=== PATIENT | male | born 1950 | race Caucasian/White ===

== ENCOUNTER 2017-01-05 17:15 | Observation (INO) | payer BC ==
[~2017-01-05] VITALS: Ht 198.1 cm; Wt 122.3 kg
--- NOTE | 2017-01-05 17:39 | DIAGNOSTIC IMAGING REPORT ---
PROCEDURE: XR CHEST 1 VIEW INDICATION: STROKE SYMPTOMS TECHNIQUE: Portable AP view 05:32 p.m. COMPARISON: None. FINDINGS: Lungs are clear. Heart and mediastinum are normal. Thorax is normal. IMPRESSION: 1. Negative chest.
--- NOTE | 2017-01-05 18:21 | DIAGNOSTIC IMAGING REPORT ---
PROCEDURE: CT HEAD WITHOUT CONTRAST INDICATION: STROKE TECHNIQUE: Axial CT images were acquired through the head. Coronal and sagittal reformations were created. COMPARISON: Brain MRI dated 01/01/2016 FINDINGS: Mild cortical atrophy and normal ventricular system Mild white matter chronic ischemic changes. Dolichoectasia of the basilar artery (diameter 1.5 cm, length 3 cm) with questionable thrombus formation and prominent indentation of the right side of the negro. There is no acute CVA, acute hemorrhage or mass. Normal orbits. The mastoids and sinuses are clear. . IMPRESSION: 1. Basilar dolichoectasia with marked indentation of the right side of the negro and questionable thrombus formation. 2. Mild atrophy and white matter chronic ischemic changes. 3. Findings discussed with Dr. Spencer at 06:[address] scans at this facility use dose modulation, iterative reconstruction, and/or weight-based dosing when appropriate to reduce radiation dose to as low as reasonably achievable.
--- NOTE | 2017-01-05 18:40 | DIAGNOSTIC IMAGING REPORT ---
PROCEDURE: CTA HEAD AND NECK INDICATION: STROKE SYMPTOMS TECHNIQUE: CT angiogram of the brain 23-second delay following 122 ml of Isovue 370 COMPARISON: Brain MRI dated 01/01/2016 FINDINGS: There is a dolichoectatic basilar artery with aneurysmal dilatation in the midportion. In the AP dimension the aneurysm now measures 3 cm. The aneurysm is now indenting and compressing the brainstem. There is also dolichoectasia of the carotid and middle cerebral arteries. Since the previous study the aneurysm appears to have increased in diameter by 2-3 mm. There is no acute CVA or acute hemorrhage IMPRESSION: 1. Dolichoectatic basilar artery fusiform aneurysm with 2-3 mm of enlargement in diameter over the past year. 2. No acute hemorrhage or infarct. 3. Results were called to Dr. Spencer at 06:30 p.m.
--- NOTE | 2017-01-05 19:47 | ED NURSING NOTES ---
Clinical Report - Nurses [place] [place] [address] [place] [address] 01/05/2017 17:16 Patient: CIRILO HOPE TRIAGE Acuity: LEVEL 2. Chief Complaint: IMPAIRED SPEECH and DIFFICULTY WALKING. Alert. No acute distress. SEPSIS SCREEN: Sepsis Screen. Negative (no infection suspected/documented). SALLIE COMA SCORE: Donahue Coma Scale: 15- eyes open spontaneously (4); best verbal response- oriented x 4 (5); best motor response- obeys commands (6). --17:25 Magdalena Bauer R.N. 17:18 01/05/17. BP: 153/96. HR: 68. RR: 18. O2 saturation: 95% on room air. Temp: 98.4 F (oral). Pain level now: 0/10. --17:25 Magdalena Bauer R.N. Weight: 113.3 kg stated. Height/Length: 79 inches Per Patient. BMI: 28.2. --17:22 Magdalena Bauer R.N. Medications AmLODIPine Besylate Oral (Tablet 10 mg) 1 tablet, at bedtime. --18:05 Joao Noriega R.N. AndroGel Pump Transdermal (Gel 20.25 MG/ACT (1.62%)) (apply one punctate shoulder daily in the morning). --18:06 Joao Noriega R.N. Cialis Oral (Tablet 5 mg) 1 tablet, daily (take one tablet by mouth once daily to help with urine flow and help with sexual function ). --18:09 Joao Noriega R.N. ClonazePAM Oral (Tablet 1 mg) 1-1/2 tablets, at bedtime (for sleep and muscle spasm). --18:10 Joao Noriega R.N. Losartan Potassium Oral (Tablet 100 mg) 1 tablet, daily (take one tablet every morning to control blood pressure). --18:10 Joao Noriega R.N. Metoprolol Tartrate Oral (Tablet 100 mg) 1 tablet, every 12 hours (one tablet by mouth every 12 hours for blood pressure control). --18:12 Joao Noriega R.N. Spironolactone Oral (Tablet 25 mg) 1 tablet, daily (one tablet by mouth every morning to control blood pressure and fluid retention). --18:13 Joao Noriega R.N. Aspirin Oral (Tablet 325 mg). --20:34 Praveen Spencer DO. Medication/allergy information source: the patient's primary care provider and imported external medical record (faxed from Dr Corley office by Brisa Emmanuel). --18:24 Joao Noriega R.N. Allergies No Known Drug Allergy. --17:27 Magdalena Bauer R.N. History Arrived by private vehicle. Historian: patient. Unaccompanied. This started 1 weeks ago. Onset. (1 weeks ago). ( Pt reports slurred speech and difficulty walking "on and off for a week." He reports he called [facility] and they instructed them to come into the ED.). NUTRITIONAL RISK ASSESSMENT: The nutritional risk assessment revealed no deficiencies. FUNCTIONAL ASSESSMENT: Functional assessment: no impairments noted. LEARNING NEEDS ASSESSMENT: The learning needs assessment revealed no barriers. FALL RISK ASSESSMENT: Fall risk assessment completed. Risk factors identified include patient impairment of mobility. SKIN INTEGRITY ASSESSMENT: Skin integrity risk assessment completed. No skin integrity risk identified. --17:25 Magdalena Bauer R.N. PROBLEMS: Hypoxia. Urinary tract obstruction. Multiple nodules of lung. Transient cerebral ischemia. Bifascicular block on echo. Benign essential hypertension. Testicular hypofunction. Benign Prostatic Hypertrophy. Peripheral Vascular Disease. Pulmonary Embolism. Obstructive Sleep Apnea. Anxiety Reaction. Hyperlipidemia. Hypertension. Aneurysm, Cerebral. Aortic Aneurysm. CVA - Cerebrovascular Accident. --18:23 Joao Noriega R.N. ADDITIONAL SURGERIES: Colonoscopy. Fracture Repair. Tonsillectomy. --18:23 Joao Noriega R.N. Assessment GENERAL / NEURO / PSYCH: Alert. Oriented X 4. Appears in no acute distress. Patient appears calm and cooperative. RESPIRATORY: Respirations not labored. CVS: Capillary refill less than 2 seconds. GI / : Abdomen soft and nontender. SKIN: Mucous membranes are pink. Skin is warm and dry. --17: Magdalena Bauer R.N. Interventions ID band on patient. To treatment room. --17: Magdalena Bauer R.N. PHYSICAL ASSESSMENT 17:24 01/05/17. Ambulatory to room. Baseline functional status: usually alert and oriented x4. Verbal response: usually clear and appropriate. Motor response: usually steady gait and moves all extremities equally GENERAL / NEURO / PSYCH: Awake. Oriented X 4. Alert. Appears in no acute distress. Speech normal. Mood/affect normal. Moves all extremities. HEENT: No facial asymmetry noted. No signs of head trauma. CVS: Capillary refill less than 2 seconds. SKIN: Skin is intact, warm and dry. --17:24 Magdalena Bauer R.N. NURSING PROGRESS NOTES 17:01/05/2017 Site #1 started via IV in the right antecubital space with an 20g angiocath, with aseptic technique and good blood return; one attempt. Blood drawn: rainbow set. Labeled in the presence of the patient and sent to the lab. Saline lock flushed with 10 mL saline. --: Magdalena Bauer R.N. 17:01/05/17. Finger stick glucose: 67 mg/dL; performed by [employer]; result shown to the ED physician. Patient gowned. Head of bed elevated. Two patient identifiers checked. Call light placed in reach. Side rails up x 2. Bed placed in lowest position. Brakes of bed on. Patient ready for evaluation- ED physician notified. ED physician at the patient's bedside. --17: Magdalena Bauer R.N. 17:33 01/05/17. ( chest X-ray performed in room..). --: Magdalena Bauer R.N. 17:58 01/05/2017 Started bag #1 1000 mL IV Fluids IV NS (Saline); at 999 mL/hr over 15 minute(s) via site #1 via IV pump. Allergies verified and confirmed 5 rights. IV patency established. IV site checked: no pain, redness, or swelling. IV flushed thoroughly pre- and post-medication administration. --17:58 Magdalena Bauer R.N. 17:58 01/05/17. Patient returned from CT by stretcher with nurse and tech. --17:58 Magdalena Bauer R.N. 17:59 01/05/17. BP: 134/100. HR: 62. RR: 11. O2 saturation: 96% on room air. --18:01 Magdalena Bauer R.N. late entry - 18:10. --18:26 Magdalena Bauer R.N. 18:26 01/05/17. BP: 128/86. HR: 60. RR: 12. O2 saturation: 96%. --18:26 Magdalena Bauer R.N. 18:40 01/05/17. BP: 125/83. HR: 58. RR: 20. O2 saturation: 94%. --18:40 Magdalena Bauer R.N. 19:09 01/05/17. Care transferred and report received (from Magdalena, RN). --19:09 Lorenza Valverde R.N. EKG time: (17:28). EKG was performed by a tech and shown to the ED physician. Glucose: 67. --19:13 Abby Pandey 19:42 Telemetry strip posted to chart. --19:42 Yariel, Oarlia, ER Tech1 Cardiac rhythm: sinus bradycardia. --19:56 Lorenza Valverde R.N. 19:55 01/05/17. BP: 131/87. HR: 57. RR: 18. O2 saturation: 98%. Pain level now 0/10. --19:56 Lroenza Valverde R.N. NIH STROKE SCALE: 19:54 01/05/17. 19:55 01/05/17. Score 0. Level of Consciousness: alert (0). LOC Questions: both (0). LOC Commands: both (0). Best gaze: normal (0). Visual field loss: none (0). Facial palsy: normal (0). Motor arm: no drift right arm (0) and no drift left arm (0). Motor leg: no drift right leg (0) and no drift left leg (0). Limb ataxia: none (0). Sensory loss: none (0). Aphasia: none (0). Dysarthria: normal (0). Extinction and inattention: none (0). --19:55 Lorenza Valverde R.N. DISPOSITION / DISCHARGE 20:47 01/05/2017 Site #[address] upon admission; patent. Good blood return present; flushes easily. --20:47 Lorenza Valverde R.N. 20:47 01/05/2017 IV Fluids IV NS Discontinued: discontinued. Total amount infused: 750 mL. IV patency established. IV site checked: no pain, redness, or swelling. IV flushed thoroughly. --20:47 Lorenza Valverde R.N. Condition at departure: improved and stable. The goals identified in the patient's plan of care were met. Disposition: observation in Acute Care. Report was given. (to Kristie, RN). Bed requested (210 B). FALL RISK ASSESSMENT: Fall risk assessment completed. No fall risk identified. --20:48 Lorenza Valverde R.N. 19:55 01/05/17. BP: 131/87. HR: 57. RR: 18. O2 saturation: 98%. Pain level now 0/10. 18:40 01/05/17. BP: 125/83. HR: 58. RR: 20. O2 saturation: 94%. 18:26 01/05/17. BP: 128/86. HR: 60. RR: 12. O2 saturation: 96%. 17:59 01/05/17. BP: 134/100. HR: 62. RR: 11. O2 saturation: 96% on room air. 17:18 01/05/17. BP: 153/96. HR: 68. RR: 18. O2 saturation: 95% on room air. Temp: 98.4 F (oral). Pain level now: 0/10. --20:48 Lorenza Valverde R.N. Locked/Released at 01/05/2017 20:48 by Lorenza Valverde R.N.
--- NOTE | 2017-01-05 19:47 | ED CLINICAL REPORT ---
Clinical Report - Physicians/Mid Levels [facility] [address] [place] [address] 01/05/2017 17:16 Patient: CIRILO HOPE Time Seen: 17:17. Arrived- By private vehicle. Historian- patient. HISTORY OF PRESENT ILLNESS Chief Complaint: DIFFICULTY WALKING and IMPAIRED SPEECH. This started about 1 week ago - continuous for past 2 days and is still present. It was abrupt in onset and has been waxing/waning. The patient has had difficulty with speech. He has had moderate difficulty walking. The patient has also had coordination problems. At its maximum deficit described as moderate. When seen in the E.D.,deficit described as moderate. No dizziness, altered mental status or seizure. Usually is alert and oriented X3 and has normal mobility. Similar symptoms previously: Recent medical care: Not recently seen/assessed. REVIEW OF SYSTEMS No fever, chest pain, difficulty breathing, cough or sputum production. No sore throat, abdominal pain, nausea, diarrhea or black stools. No difficulty with urination, skin rash, vomiting, bloody stools or back pain. The patient has had a mild headache. The headache has been similar to previous ones and joint pain. All systems otherwise negative, except as recorded above. PAST HISTORY See nurses notes. Hypertension. Stroke. ( PCP: Dr Emmanuel Neurologist: Dr Mills). Aortic aneurysm. Peripheral vascular disease. Obstructive sleep apnea. Pulmonary embolism. Hyperlipidemia. Cerebral aneurysm (right basilar artery aneurysm causing episodic TIA-type symptoms.). Poliomyelitis (as small child). Benign prostatic hypertrophy. Anxiety with panic attacks. (Testicular hypofunction). Surgeries: Colonoscopy. Left lower extremity fracture repair (foot - reconstruction after polio). Tonsillectomy. Medications: Aspirin Oral (Tablet 325 mg). Spironolactone Oral (Tablet 25 mg) 1 tablet, daily (one tablet by mouth every morning to control blood pressure and fluid retention). Metoprolol Tartrate Oral (Tablet 100 mg) 1 tablet, every 12 hours (one tablet by mouth every 12 hours for blood pressure control). Losartan Potassium Oral (Tablet 100 mg) 1 tablet, daily (take one tablet every morning to control blood pressure). ClonazePAM Oral (Tablet 1 mg) 1-1/2 tablets, at bedtime (for sleep and muscle spasm). Cialis Oral (Tablet 5 mg) 1 tablet, daily (take one tablet by mouth once daily to help with urine flow and help with sexual function ). AndroGel Pump Transdermal (Gel 20.25 MG/ACT (1.62%)) (apply one punctate shoulder daily in the morning). AmLODIPine Besylate Oral (Tablet 10 mg) 1 tablet, at bedtime. Allergies: No Known Drug Allergy. SOCIAL HISTORY Former smoker. Occasional alcohol use. No drug use. Residence: - 09/02/2016 Is a local resident. FAMILY HISTORY Heart disease in first-degree relative (father); cancer in first-degree relative (mother). Father age 66y/o from heart disease Mother age 64 y/o from lung / brain cancer. ADDITIONAL NOTES The nursing notes have been reviewed. PHYSICAL EXAM Vital Signs: 01/05/2017 17:18 BP: 153/96. HR: 68. RR: 18. O2 saturation: 95%. Temp: 98.4 F. Pain level now: 0/10. Appearance: Alert. Odor of alcohol is not present. Head: Head atraumatic. Eyes: Pupils equal, round and reactive to light and light. ENT: Normal ENT inspection. Airway intact. Pharynx normal. Neck: Normal inspection. Neck supple. No meningeal signs or carotid bruit. CVS: Normal heart rate and rhythm. Heart sounds normal. Pulses normal. Respiratory: No respiratory distress. Breath sounds normal. Abdomen: Soft and nontender. Back: Normal inspection. Skin: No cyanosis. Skin warm and dry. Normal skin color. Normal skin turgor. Extremities: No calf tenderness. No lower extremity edema. (left foot deformity - nontender). Neuro: Pattie Coma Scale: 15- eyes open spontaneously (4); best verbal response- oriented x 3 (5); best motor response- obeys commands (6). Awake. Alert. Alert. Oriented X 3 and 3. Alertness is not decreased. No aphasia. Mood/affect normal and normal. Speech normal and normal. No dysphasia or dysarthria. Cranial nerves normal (as tested) and tested). Abnormal gait due to mild ataxia. No motor deficit and deficit. No weakness. No sensory deficit and deficit. No sensory deficit. Reflexes normal and normal. NIH Stroke Scale: score 1. Level of Consciousness: drowsy (1). LOC Questions: both (0). Best gaze: normal (0). Visual field loss: none (0). Facial palsy: normal (0). Motor arm: no drift right arm (0) and no drift left arm (0). Motor leg: no drift right leg (0) and no drift left leg (0). Limb ataxia: none (0). Sensory loss: none (0). Aphasia: none (0). Dysarthria: normal (0). Extinction and inattention: none (0). No pronator drift. LABS, X-RAYS, AND EKG EKG: EKG time: (17:28). Normal sinus rhythm. Rate: 65. Normal P waves. Normal JORGE. RBBB. Left axis deviation. Non-specific ST segment / T wave abnormalities. Non-specific T wave flattening in lead III. Non-specific T wave inversion in lead V1 and V2. EKG unchanged when compared with prior EKG. (from 12/05/2014). The study has been interpreted contemporaneously by me. The EKG appears to be a good tracing. Rhythm Strip #1: Normal sinus rhythm. Regular rhythm. Narrow QRS complexes. No ectopy. Chest X-ray: No acute disease. Normal heart size. Mediastinum normal. Views: AP (portable). Technique: good. The X-rays were interpreted contemporaneously by me. The X-rays were discussed with the radiologist (via PACS note). CT Head: No hemorrhage. (IMPRESSION: 1. Basilar dolichoectasia with marked indentation of the right side of the negro and questionable thrombus formation. 2. Mild atrophy and white matter chronic ischemic changes.). Head CT performed without contrast. The study was independently viewed by me, interpreted by the radiologist and discussed with the radiologist. Laboratory Tests: ESR: (MARLEN: 01/05/2017 17:25) ( MsgRcvd 01/05/2017 17:57) Final results Test Result Flag Units (Reference) SED RATE WESTERGREN 11 mm/hr (0-20) CBC w Diff: (MARLEN: 01/05/2017 17:25) ( MsgRcvd 01/05/2017 17:34) Final results Test Result Flag Units (Reference) WHITE BLOOD COUNT 12.7 H K/uL (4.5-11.5) RED BLOOD COUNT 4.73 M/uL (4.50-5.90) HEMOGLOBIN 13.1 L gm/dL (13.5-17.5) HEMATOCRIT 39.1 L % (41.0-53.0) MEAN CELL VOLUME 83 fL (80-100) MEAN CORPUSCULAR HGB 28 pg (26-34) MEAN CORPUSCULAR HGB CONC 33 g/dL (31-37) RED CELL DISTRIBUTION WIDTH 13.7 % (11.6-14.8) PLATELET COUNT 230 K/uL (150-400) LYMPH % 34.5 % (25-40) MONO % 3.1 % (3-14) GRANULOCYTE % 62.4 PT with INR: (MARLEN: 01/05/2017 17:25) ( MsgRcvd 01/05/2017 17:57) Final results Test Result Flag Units (Reference) INR 1.0 (0.8-1.2) Low Intensity Therapy: INR 1.5-2.0 PT range 18.5-23.1Mod.Intensity Therapy: INR 2.0-3.0 PT range 23.1-31.5High Intensity Therapy: INR 2.5-3.5 PT range 27.4-35.5High Intensity Therapy 2: INR 3.0-4.0 PT range 31.5-39.3 D-DIMER QUANTITATIVE 1.35 H ug/mLFEU (0.27-0.52) The primary value of this quantitative assay relates toits negative predictive value (i.e. exclusion) of pulmonaryembolism/deep vein thrombosis/DIC.Elevated levels of d-dimer may also occur with:, age, cancer, inflammation, liver disease,post-op, infection, hematoma, coronary disease, peripheralarteriopathy, bleeding disorders and thrombolytic treatment.Results should be correlated with other clinical andradiological data.Testing Methodology: Latex Immunoassay BNP: (MARLEN: 01/05/2017 17:25) ( [facility] 01/05/2017 18:06) Final results Test Result Flag Units (Reference) B-TYPE NATRIURETIC PEPTIDE 19.4 pg/ml (5-100) Amylase: (MARLEN: 01/05/2017 17:25) ( SdgRcvd 01/05/2017 18:02) Final results Test Result Flag Units (Reference) AMYLASE 38 U/L (25-115) THYROID STIMULATING HORMONE 3.894 H uIU/mL (0.30-3.74) CHEM 13 PANEL: (MARLEN: 01/05/2017 17:25) ( [facility] 01/05/2017 18:02) Final results Test Result Flag Units (Reference) GLUCOSE 89 mg/dL (70-110) BUN 22 H mg/dL (7-18) CREATININE 1.0 mg/dL (0.6-1.3) Estimated GFR >60 mL/min Estimated GFR- >60 mL/min Note: Persistent reduction over 3 months in eGFR<60 mL/min/1.73 m2 defines CKD. Patients with eGFR values>=60 mL/min/1.73 m2 may also have CKD if evidence ofpersistent proteinuria. Additional information may be foundat www.kidney.org. SODIUM 140 mmol/L (136-145) POTASSIUM 4.2 mmol/L (3.5-5.1) CHLORIDE 103 mmol/L (98-107) CARBON DIOXIDE 26 mmol/L (21-32) CALCIUM 8.9 mg/dL (8.5-10.1) TOTAL PROTEIN 7.6 g/dL (6.4-8.2) ALBUMIN 4.0 g/dL (3.3-5.0) BILIRUBIN, TOTAL 0.3 mg/dL (0.0-1.0) ALKALINE PHOSPHATASE 71 U/L (46-116) AST (SGOT) 20 U/L (15-37) ALT (SGPT) 24 U/L (12-78) CPK 353 H U/L (24-260) MAGNESIUM 2.0 mg/dL (1.8-2.4) CK-MB 1.2 ng/mL (0.5-3.2) %CKMB 0.3 % (0.0-4.0) TROPONIN I <0.05 L ng/mL (0.00-1.5) TROPONIN REFERENCE RANGE:<0.1 NEGATIVE0.1-1.5 INDETERMINANT>1.5 POSITIVE . Pulse Oximetry: 01/05/2017 17:18 O2 saturation: 95%. (FIO2 - room air). Interpretation: normal. Note - Tests: (DATE OF EXAM(S): 01/01/16 PROCEDURE: MR BRAIN WITHOUT CONTRAST INDICATION: Slurred speech, loss of balance, initial encounter IMPRESSION: 1. Basilar dolichoectasia with marked indentation of the right side of the negro and questionable thrombus formation. Recommend brain MRA. 2. Mild atrophy and white matter chronic ischemic changes. 3. Results discussed with Dr. Emmanuel DATE OF EXAM(S): 12/29/2014 PROCEDURE: CTA THORAX IMPRESSION: 1. No pulmonary embolus. 2. Moderate diffuse cardiomegaly and interstitial prominence raising possibility of mild CHF, chronicity uncertain. 3. Multiple bilateral pulmonary nodules as well as pleural plaquing suggestive of asbestosis. Follow-up chest CT in 3-6 months to begin documenting stability is recommended. 4. Discussed with Dr. Emmanuel. EXAM(S): NM CARDIAC STRESS TEST DATE OF EXAM(S): 12/13/2014 CONSULTING DIESEL ENGINE II PIPE FITTER: Alli Moreno MD PROCEDURE PERFORMED: Two-day sestamibi CLINICAL INDICATIONS: Failed treadmill. Fatigue. Risk factors. IMPRESSION: 1. No evidence for fixed or ischemic defects. 2. Left ventricular enlargement. 3. Left ventricular ejection fraction 48%, mildly diffusely decreased.). PROGRESS AND PROCEDURES Course of Care: Pt took ASA 325 mg prior to arrival today 01/05/2017 18:26 BP: 128/86. HR: 60. RR: 12. O2 saturation: 96%. 01/05/2017 17:18 BP: 153/96. HR: 68. RR: 18. O2 saturation: 95%. Temp: 98.4 F. Pain level now: 0/10. TCD's in the past at [facility] did not reveal emboli 18:56 01/05/17. Feels that pt should have MRI within 24 hours - recommends obs admission for monitoring and MRI in am. Discussed case with on-call health care provider, (Lew Cool - stroke fellow - call placed 18:20 call returned 18:31; Spoke with Dr Pelletier and returned at 18:53). Reviewed test results. Agreed upon decision. Discussed case with hospitalist, (Toma call placed 18:57). Refers case to other health care provider. Call placed to health care provider [place]. Patient/family counseled. Old clinic and office records reviewed. Disposition: Observation in Acute Care. Condition: stable and improved. CLINICAL IMPRESSION Multiple acute transient ischemic attacks consistent with the vertebro-basilar artery syndrome. Essential hypertension. Basilar artery aneurysm with thrombus. INSTRUCTIONS Follow-up: Screening today revealed the patient's blood pressure to be in the hypertensive range. The patient should follow up with a primary care provider for blood pressure management. The patient was admitted and blood pressure will be managed during the admission. (Electronically signed by Praveen Spencer DO 01/05/2017 23:15)
--- NOTE | 2017-01-05 19:47 | ED ORDER SUMMARY ---
..... Patient: CIRILO HOPE OrderSheet [facility] VisitID: [id number] [place] [address] 66y, M Registration Date/Time: 01/05/2017 ORDER SHEET Weight: 113.3 kg (stated) Allergies: No Known Drug Allergy GENERAL ORDERS: Chest 1V Urgent (17:17 01/05/2017 PHutchinson DO) (Ack 17:21 KHoerner) (18:03 MWinterer R.N.) Estate [employer] Tax Principal (Continuous) (17:17 01/05/2017 PHutchinson DO) (Ack 17:21 KHoerner) (17:25 MWinterer R.N.) CT Head wo Cont Urgent (17:18 01/05/2017 PHutchinson DO) (Ack 17:21 KHoerner) (18:03 MWinterer R.N.) UA-Culture if indicated Urgent (17:18 01/05/2017 PHutchinson DO) (Ack 17:21 KHoerner) Cardiac Panel Stat (17:18 01/05/2017 PHutchinson DO) (Ack 17:21 KHoerner) (17:26 MWinterer R.N.) BNP Urgent (17:18 01/05/2017 PHutchinson DO) (Ack 17:21 KHoerner) (17:26 MWinterer R.N.) D-Dimer Urgent (17:18 01/05/2017 PHutchinson DO) (Ack 17:21 KHoerner) (17:26 MWinterer R.N.) Amylase Urgent (17:18 01/05/2017 PHutchinson DO) (Ack 17:21 KHoerner) (17:26 MWinterer R.N.) PT with INR Urgent (17:18 01/05/2017 PHutchinson DO) (Ack 17:21 KHoerner) (17:26 MWinterer R.N.) TSH Urgent (17:18 01/05/2017 PHutchinson DO) (Ack 17:21 KHoerner) (17:26 MWinterer R.N.) ESR Urgent (17:18 01/05/2017 PHutchinson DO) (Ack 17:21 KHoerner) (17:26 MWinterer R.N.) Urine Drug Screen [facility] ([facility] 17:21 KHoerner) Pulse oximeter (17:18 [facility]/05/2017 [facility] (Ack 17:21 KHoerner) (17:25 MWinterer R.N.) EKG - ER Stat (17:18 [facility]/05/2017 [facility] (Ack 17:21 KHoerner) (17:25 MWinterer R.N.) Vitals (17:18 [facility]/05/2017 [facility] (Ack 17:21 KHoerner) (17:25 MWinterer R.N.) Old Records (from [facility] - prior neurology / neurosurgery) (17:18 [facility]/05[facility]2017 [facility] (Ack 17:21 KHoerner) (17:23 KHoerner) CTA Head and Neck (No) (N/A) (thoracic Aortic aneurysm by history) Urgent (17:28 [facility]/05/2017 [facility] (Ack 17:30 KHoerner) (18:03 MWinterer R.N.) Call (Place call to): (Dr Emmanuel) (19:35 01/05/2017 [facility]) (Ack 19:37 AMcQuoid ER Tech1) (20:03 AMcQuoid ER Tech1) MEDICATION ORDERS: IV FLUIDS: IV NS : initial bolus 250 mL (1000 mL/hr), then 250 mL/hr for X3 (NOW) (17:17 01/05/2017 [facility]) (Ack 17:25 MWinterer R.N.) (17:58 MWinterer R.N.) Zofran IV 4 mg (NOW) (17:18 01/05/2017 [facility] DO) (Ack 17:25 MWinterer R.N.) (Cancelled: Patient [id number] MWinterer R.N.) ORDER SHEET NOTES: [Electronically signed by Lorenza Valverde R.N. (20:48 01/05/2017)] [Electronically signed by Praveen Spencer DO (23:15 01/05/2017)] [Electronically locked/signed by Lorenza Valverde R.N. (20:48 01/05/2017)]
--- NOTE | 2017-01-05 19:47 | ED ORDER SUMMARY ---
..... Patient: CIRILO HOPE OrderSheet [facility] VisitID: [id number] [place] [address] 66y, M Registration Date/Time: 01/05/2017 ORDER SHEET Weight: 113.3 kg (stated) Allergies: No Known Drug Allergy GENERAL ORDERS: Chest 1V Urgent (17:17 01/05/2017 PHutchinson DO) (Ack 17:21 KHoerner) (18:03 MWinterer R.N.) Sociology Adjunct Instructor (Continuous) (17:17 01/05/2017 PHutchinson DO) (Ack 17:21 KHoerner) (17:25 MWinterer R.N.) CT Head wo Cont Urgent (17:18 01/05/2017 PHutchinson DO) (Ack 17:21 KHoerner) (18:03 MWinterer R.N.) UA-Culture if indicated Urgent (17:18 01/05/2017 PHutchinson DO) (Ack 17:21 KHoerner) Cardiac Panel Stat (17:18 01/05/2017 PHutchinson DO) (Ack 17:21 KHoerner) (17:26 MWinterer R.N.) BNP Urgent (17:18 01/05/2017 PHutchinson DO) (Ack 17:21 KHoerner) (17:26 MWinterer R.N.) D-Dimer Urgent (17:18 01/05/2017 PHutchinson DO) (Ack 17:21 KHoerner) (17:26 MWinterer R.N.) Amylase Urgent (17:18 01/05/2017 PHutchinson DO) (Ack 17:21 KHoerner) (17:26 MWinterer R.N.) PT with INR Urgent (17:18 01/05/2017 PHutchinson DO) (Ack 17:21 KHoerner) (17:26 MWinterer R.N.) TSH Urgent (17:18 01/05/2017 PHutchinson DO) (Ack 17:21 KHoerner) (17:26 MWinterer R.N.) ESR Urgent (17:18 01/05/2017 PHutchinson DO) (Ack 17:21 KHoerner) (17:26 MWinterer R.N.) Urine Drug Screen Urgent (17:18 [facility] (Ack 17:21 KHoerner) Pulse oximeter (17:18 01/05/2017 [facility]) (Ack 17:21 KHoerner) (17:25 MWinterer R.N.) EKG - ER Stat (17:18 01/05/2017 [facility]) (Ack 17:21 KHoerner) (17:25 MWinterer R.N.) Vitals (17:18 01/05/2017 [facility]) (Ack 17:21 KHoerner) (17:25 MWinterer R.N.) Old Records (from [facility] - prior neurology / neurosurgery) (17:18 01/05/2017 [facility]) (Ack 17:21 KHoerner) (17:23 KHoerner) CTA Head and Neck (No) (N/A) (thoracic Aortic aneurysm by history) Urgent (17:28 01/05/2017 [facility]) (Ack 17:30 KHoerner) (18:03 MWinterer R.N.) Call (Place call to): (Dr Emmanuel) (19:35 01/05/2017 [facility]) (Ack 19:37 AMcQuoid ER Tech1) (20:03 AMcQuoid ER Tech1) MEDICATION ORDERS: IV FLUIDS: IV NS : initial bolus 250 mL (1000 mL/hr), then 250 mL/hr for X3 (NOW) (17:17 01/05/2017 [facility]) (Ack 17:25 MWinterer R.N.) (17:58 MWinterer R.N.) Zofran IV 4 mg (NOW) (17:18 01/05/2017 [facility] DO) (Ack 17:25 MWinterer R.N.) (Cancelled: Patient [id number]:01 MWinterer R.N.) ORDER SHEET NOTES: [Electronically signed by Lorenza Valverde R.N. (20:48 01/05/2017)] [Electronically signed by Praveen Spencer DO (23:15 01/05/2017)] [Electronically locked/signed by Lorenza Valverde R.N. (20:48 01/05/2017)]
[2017-01-05 21:25] VITALS: BP 124/91
--- NOTE | 2017-01-05 23:15 | ED MED RECONCILIATION SUMMARY ---
Patient: CIRILO HOPE Medication Reconciliation Report [facility] VisitID: [id number] [address] [place] [address] 66y, M Registration Date/Time: 01/05/2017 Weight: 113.3 kg Height/Length: 79 in. BMI: 28.2 ALLERGIES: No Known Drug Allergy The patient's Home Medications are listed below: THE FOLLOWING MEDICATIONS NEED TO BE RECONCILED: AmLODIPine Besylate Oral (10 mg) 1 tablet, at bedtime AndroGel Pump Transdermal (20.25 MG/ACT (1.62%)), apply one punctate shoulder daily in the morning Aspirin Oral (325 mg) Cialis Oral (5 mg) 1 tablet, daily, take one tablet by mouth once daily to help with urine flow and help with sexual function ClonazePAM Oral (1 mg) 1-1/2 tablets, at bedtime, for sleep and muscle spasm Losartan Potassium Oral (100 mg) 1 tablet, daily, take one tablet every morning to control blood pressure Metoprolol Tartrate Oral (100 mg) 1 tablet, every 12 hours, one tablet by mouth every 12 hours for blood pressure control Spironolactone Oral (25 mg) 1 tablet, daily, one tablet by mouth every morning to control blood pressure and fluid retention The source(s) of the original Home Medication information: patient's primary care provider patient's imported external medical record faxed from Dr Corley office by Brisa Emmanuel The following Medications were given to the patient in the Emergency Department: IV NS IV Fluids bolus 0, then 999 mL/hr, administered: 01/05/2017 5:58:00 PM The following Medications were prescribed to the patient: None.
--- NOTE | 2017-01-05 23:15 | ED MED RECONCILIATION SUMMARY ---
Patient: CIRILO HOPE Medication Reconciliation Report [facility] VisitID: [id number] [address] [place] [address] 66y, M Registration Date/Time: 01/05/2017 Weight: 113.3 kg Height/Length: 79 in. BMI: 28.2 ALLERGIES: No Known Drug Allergy The patient's Home Medications are listed below: THE FOLLOWING MEDICATIONS NEED TO BE RECONCILED: AmLODIPine Besylate Oral (10 mg) 1 tablet, at bedtime AndroGel Pump Transdermal (20.25 MG/ACT (1.62%)), apply one punctate shoulder daily in the morning Aspirin Oral (325 mg) Cialis Oral (5 mg) 1 tablet, daily, take one tablet by mouth once daily to help with urine flow and help with sexual function ClonazePAM Oral (1 mg) 1-1/2 tablets, at bedtime, for sleep and muscle spasm Losartan Potassium Oral (100 mg) 1 tablet, daily, take one tablet every morning to control blood pressure Metoprolol Tartrate Oral (100 mg) 1 tablet, every 12 hours, one tablet by mouth every 12 hours for blood pressure control Spironolactone Oral (25 mg) 1 tablet, daily, one tablet by mouth every morning to control blood pressure and fluid retention The source(s) of the original Home Medication information: patient's primary care provider patient's imported external medical record faxed from Dr Corley office by Brisa Emmanuel The following Medications were given to the patient in the Emergency Department: IV NS IV Fluids bolus 0, then 999 mL/hr, administered: 01/05/2017 5:58:00 PM The following Medications were prescribed to the patient: None.
--- NOTE | 2017-01-05 23:15 | ED DISCHARGE INSTRUCTIONS ---
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 Essential hypertension. Basilar artery aneurysm with thrombus. INSTRUCTIONS Follow-up: Screening today revealed the patient's blood pressure to be in the hypertensive range. The patient should follow up with a primary care provider for blood pressure management. The patient was admitted and blood pressure will be managed during the admission. ADDITIONAL INFORMATION High Blood Pressure --Established High Blood Pressure (Hypertension) is a chronic disease. The cause is unknown in most cases. It can usually be controlled with lifestyle changes and/or medicines. Symptoms of high blood pressure may include headache, dizziness, visual changes, chest pain and shortness of breath. Sometimes it causes no symptoms at all. However, even if there are no symptoms, untreated high blood pressure increases the risk of heart attack, also known as acute myocardial infarction, or AMI, and stroke. It is a serious health risk and should not be ignored. A normal blood pressure is 120/80 or less. The first (top) number is the "systolic" pressure. The second (bottom) number is the "diastolic" pressure. Hypertension exists when either the top number is 140 or higher, OR the bottom number is 90 or higher on repeated measurements. Home Care: All patients with high blood pressure should do the following to lower their pressure. If you are on medicines, then these methods may reduce or eliminate your need for medicines in the future. Begin a weight loss program if you are overweight. Reduce your salt intake. Avoid high salt foods (olives, pickles, smoked meats, salted potato chips, etc.). Do not add salt to your food at the table. Use only small amounts of salt when cooking. Begin an exercise program. Discuss with your doctor what type of exercise program would be best for you. It doesn't have to be difficult. Even brisk walking for 20 minutes three times a week is a good form of exercise. Avoid medicines which contain heart stimulants. This includes many cold and sinus decongestant pills and sprays as well as diet pills. Check the warnings about hypertension on the label. Stimulants such as amphetamine or cocaine could be lethal for someone with hypertension. Never take these. Limit your caffeine intake or switch to caffeine-free products. Stop smoking. If you are a long-time smoker, this can be hard. Enroll in a stop-smoking program to improve your chance of success. Learning how to handle stress better is an important part of any program to lower blood pressure. Learn about relaxation methods such as meditation, yoga or biofeedback. If medicines were prescribed, take them exactly as directed. Missing doses may cause your blood pressure get out of control. Consider buying an automatic blood pressure machine (available at most pharmacies). Use this to monitor your blood pressure at home and report the results to your doctor. Follow Up: Regular visits to your own physician for blood pressure checks and medicine adjustment is an important part of your care. Make a follow-up appointment as directed by our staff. Get Prompt Medical Attention if any of the following occur: Chest pain or shortness of breath Severe headache Throbbing or rushing sound in the ears Nosebleed Sudden severe abdominal pain Extreme drowsiness, confusion or fainting Dizziness or vertigo (dizziness with spinning sensation) Weakness of an arm or leg or one side of the face Difficulty with speech or vision You have been given the following additional information: Hypertension, Established (Electronically signed by Praveen Spencer DO 01/05/2017 23:15)
--- NOTE | 2017-01-05 23:15 | ED MAR SUMMARY ---
..... Medication Administration Record [facility] [address] [place] [address] Patient: CIRILO HOPE Visit ID: [id number] 66y, M Weight: 113.3 kg Height/Length: 79 in BMI: 28.2 ALLERGIES: No Known Drug Allergy Start 17:58 01/05/2017 Magdalena Bauer RAngelina, Stop 20:47 01/05/2017 Lorenza Valverde R.N. Medication Administered: IV NS (SALINE), Dose: IV Fluids over 15 minute(s), Rate: 999 mL/hr, Dispensed: 1000 mL bag, Site: #1 right AC. Medication Ordered: IV NS : initial bolus 250 mL (1000 mL/hr), then 250 mL/hr for X3 (NOW).
--- NOTE | 2017-01-05 23:15 | ED MAR SUMMARY ---
..... Medication Administration Record [facility] [address] [place] [address] Patient: CIRILO HOPE Visit ID: [id number] 66y, M Weight: 113.3 kg Height/Length: 79 in BMI: 28.2 ALLERGIES: No Known Drug Allergy Start 17:58 01/05/2017 Magdalena Bauer RAngelina, Stop 20:47 01/05/2017 Lorenza Valverde R.N. Medication Administered: IV NS (SALINE), Dose: IV Fluids over 15 minute(s), Rate: 999 mL/hr, Dispensed: 1000 mL bag, Site: #1 right AC. Medication Ordered: IV NS : initial bolus 250 mL (1000 mL/hr), then 250 mL/hr for X3 (NOW).
[2017-01-05] MEDS ORDERED: KLONOPIN0.5 M1 PO (23:35)
[2017-01-05] MEDS ORDERED: LOPRESSOR25 MG PO (23:36)
[2017-01-05] MEDS ORDERED: ASPIRIN325 MG PO (23:36)
[2017-01-05] MEDS ORDERED: AMLODIPINE BESYL5 MG PO (23:37)
[2017-01-05] MEDS ORDERED: ALDACTONE25 MG PO (23:37)
[2017-01-06 02:21] VITALS: BP 97/67
--- NOTE | 2017-01-06 03:30 | HISTORY AND PHYSICAL ---
ADMITTED: 01/05/2017 CHIEF COMPLAINT: 1. 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 He has had symptoms develop over the last 5-6 days of slight slurring of his speech and slight balance difficulty and some difficulty clearing phlegm from his throat. These symptoms have waxed and waned a little bit, but have not completely resolved. These are identical symptoms of what he developed 1 year ago when he was diagnosed with a vertebral artery aneurysm with a small amount of clot in it. He had extensive evaluations done at [facility] with that episode and was simply discharged on aspirin at 162 mg twice daily as well as blood pressure medication to keep his blood pressure well controlled. He had been doing well until just the last 5 or 6 days and had not had any symptoms until now. 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 He has not really had any other problems. He has been keeping up with his blood pressure medication and feels he has been doing well with this. He has had a great deal of stress over the last year and had his commit suicide about 4-1/2 months ago. MEDICAL/SURGICAL HISTORY: Past medical history: Remarkable for vertebral artery aneurysm as noted. He has also had fairly longstanding hypertension. He has had problems with low testosterone. 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 He has had problems with blood clots in his legs and remote pulmonary embolus, though this has not been recurred and he has not been on long -term anticoagulants for this. He has some difficulties with lumbar disk disease. He also has significant anxiety issues for many years and has been taking clonazepam at bedtime to help with sleeping, which has worked well. He did have a significant problem with sleep apnea. He has lost a substantial amount of weight and this has seemed to resolve. He is not using a CPAP mask presently. Past surgical history is remarkable for vein stripping operations. He also has had a colonoscopy and remote tonsillectomy. MEDICATIONS: 1. Metoprolol 100 mg p.o. b.i.d. 2. Amlodipine 5 mg at bedtime. 3. Spironolactone 25 mg q.a.m. 4. Aspirin 162 mg b.i.d. 5. Clonazepam 1.5 mg at bedtime. ALLERGIES: 1. NONE. SOCIAL HISTORY: Indicates the patient is with his having committed suicide about 4-1/2 months ago. The patient has never been a smoker. He occasionally drinks small amounts of alcohol, but on an irregular basis. He was working at [employer]. He had a major change in his work situation about 3 to 4 years ago. FAMILY HISTORY: Remarkable for a mother who at age 68 of metastatic lung cancer, which spread to her brain. The patient's father around age 65 with problems he had from wounds that he suffered in World War II. REVIEW OF SYSTEMS: HEENT is okay. Respiratory is okay with no cough. Cardiovascular is okay with no chest pain or irregular heartbeats. Gastrointestinal is okay. Genitourinary is okay. He occasionally has some difficulties or slowness of urine stream, but not severe. Musculoskeletal is remarkable for some chronic lower back pain and gait abnormalities related to the left foot and ankle deformity. Neurologic is as noted above. Psychiatric is remarkable for some depression and lack of motivation since his 's . Skin has been okay, though he is tanning in anticipation of a trip to [place] in February. PHYSICAL EXAMINATION: GENERAL: Reveals the patient to be a tall white male who is somewhat overweight. VITAL SIGNS: Temperature is 97.7. Pulse is in the 50-60 range. Blood pressures in the 124/90 range currently. Oxygen saturation 98% on room air. HEENT: Head is normal with no evidence of trauma. Ear canals and tympanic membranes are normal. Eyes show very slight ptosis of the right eyelid. Extraocular movements are normal. Fundi reveal flat disks and normal vessels. Nose and throat are clear. NECK: Supple without significant adenopathy. CHEST: Clear to auscultation and percussion. Carotid pulses are normal with no bruits. HEART: Reveals normal S1 and S2 with no distinct murmur. There is no axillary adenopathy. ABDOMEN: Nontender with no organomegaly or mass. Bowel tones are normal. RECTAL AND GENITAL: Not done. EXTREMITIES: Show a slight amount of muscle atrophy in the left as compared with the right. There are some venous varicosities on both lower legs. There are multiple surgical scars on both lower legs from vein stripping operations. There is a moderate deformity of the left foot with a pronounced arch. NEUROLOGIC: Reveals the patient to be alert and oriented x3. Cranial nerves are generally symmetric. The patient does have some slight difficulty with [id number]-[id number] movements, a little more so on the right than the left. He has a very slight dysarthric speech. He has trace reflexes throughout. He has no gross weakness. SKIN: Shows some slight redness of the back and chest area where he has been tanning, otherwise there are no significant abnormalities. LAB/IMAGING: Laboratory studies show sodium of 140, potassium 4.2, chloride 103, CO2 of 26, glucose 89, BUN 22, creatinine 1.0. White blood cell count is 12,300. Hemoglobin and hematocrit are normal. Magnesium level is 2.0. Total bilirubin is 0.3. SGOT is 20, SGPT is 24. Alkaline phosphatase is 71, CPK is 353 with a troponin I less than 0.05. CPK-MB percent is 0.3. TSH is slightly elevated at 3.89. Chest x-ray is basically normal. BNP is normal. EKG shows sinus tachycardia with right bundle branch block. Brain CT scan shows dolichoectasia of the basilar artery, about 1.5 cm in diameter and about 3 cm in length, which indents the right side of the negro a little bit. There is question of thrombus present in the aneurysm. No other abnormalities are noted. IMPRESSION: 1. The patient is presenting with symptoms of mild stroke, most likely related to the clots in vertebral artery aneurysm. He has had symptoms that have not really resolved completely over the last 5 or 6 days. 2. Other problems include hypertension, which is stable. 3. Venous varicosities in lower extremities, that have been treated surgically, and have not been a problem for many years. 4. Equinovarus deformity of the left foot. 5. Testosterone deficiency. 6. History of mild to moderate prostate gland enlargement, which is asymptomatic presently. PLAN: The patient is admitted for observation. He will started on clopidogrel in place of aspirin. He will have an MRI and MRA scan done of the brain and circulation to the brain tomorrow. These reports will be sent to the [facility]. Further recommendations for care and treatment will depend on the results of the MRI scan and recommendations from the [facility] Neurology service. Additionally, a lipid profile will be checked in the morning to see if this is okay or if this needs to be addressed with medication.
[2017-01-06 07:14] VITALS: BP 118/87
[2017-01-06] MEDS ORDERED: CLOPIDOGREL75 MG PO (08:03)
--- NOTE | 2017-01-06 08:10 | Provider's Discharge Care Plan ---
Problem, Goal, Plan Problem List 1. TIA involving basilar artery Goals: Improve disease control, Improve function, Improved health/wellness, Increase independence Instructions: Follow up as directed, Take meds as directed, Reduce stress, Begin clopidogrel in place of aspirin if directed to do so. 2. Essential (primary) hypertension Goals: Improve disease control, Improve function, Improved health/wellness, Increase independence Instructions: Follow up as directed, Take meds as directed, Reduce stress, Continue usual BP meds. 3. Insomnia Goals: Improve disease control, Improve function, Improved health/wellness Instructions: Follow up as directed, Take meds as directed, Reduce stress, Contiue clonazepam 1.5 tab every evening. 4. Hyperlipidemia Goals: Improve disease control, Improve function, Improved health/wellness Instructions: Follow up as directed, Reduce stress, Follow low cholesterol diet. Consider starting statin med.
[2017-01-06 11:00] VITALS: BP 141/97
--- NOTE | 2017-01-06 15:51 | DIAGNOSTIC IMAGING REPORT ---
PROCEDURE: MRA HEAD WITHOUT CONTRAST INDICATION: CVA symptoms with dysarthria and loss of balance. History of basilar artery dolichoectasia. TECHNIQUE: Thin-cut gradient axial images with 3D MIP reconstructions in sagittal, axial, and coronal projections. Because it was felt that some vessels were suboptimally visualized, repeat sequences were obtained following the patient's contrast MRI brain study. COMPARISON: Comparison is made to CT angiogram on 01/05/2017. FINDINGS: Anterior circulation: The carotid vessels circular Woodson, anterior and middle cerebral arteries are normal. No evidence of aneurysm or vascular malformation. Posterior circulation. There is marked enlargement and dolichoectasia of the basilar artery with mild ectasia of the vertebral arteries and distal basilar artery. There is no evidence of saccular aneurysm, and no evidence of vascular malformation. IMPRESSION: 1. Normal anterior circulation. 2. Marked enlargement and dolichoectasia of the basilar artery with mild ectasia of the vertebral and distal basilar arteries.
--- NOTE | 2017-01-06 16:01 | DIAGNOSTIC IMAGING REPORT ---
PROCEDURE: MR BRAIN W/WO CONTRAST INDICATION: CVA symptoms of milt dysarthria and balance difficulty. TECHNIQUE: Multiplanar multisequence MRI imaging of the brain without contrast. Post administration of 20 ml ProHance gadolinium based IV contrast, three plane T1 fat sat sequences were obtained. COMPARISON: Brain MRI dated 01/01/2016 FINDINGS: There is a dolichoectatic basilar artery with aneurysmal dilatation in the midportion. In the AP dimension the aneurysm now measures 3 cm. The aneurysm is now indenting and compressing the brainstem. There is also dolichoectasia of the carotid and middle cerebral arteries. Since the previous study the aneurysm appears to have increased in diameter by 2-3 mm. There is no acute CVA or acute hemorrhage IMPRESSION: 1. Dolichoectatic basilar artery fusiform aneurysm with 2-3 mm of enlargement in diameter over the past year. 2. No acute hemorrhage or infarct.
== END 2017-01-06 15:53 | disposition home or self-care (01) ==
LOC: ED SRH 17:15 → TRANS SRH 19:48 → ACUTE2 SRH 19:48
PROVIDERS: ADMIT Family Medicine
DX: I63.02 Cerebral infarction due to thrombosis of basilar artery (principal); I72.5 Aneurysm of other precerebral arteries; I10 Essential (primary) hypertension; Z79.82 Long term (current) use of aspirin; F41.9 Anxiety disorder, unspecified; G47.30 Sleep apnea, unspecified
CPT/HCPCS: 29230; 85241; 90074; 90100; 90616; 90617; 91320; 91556; 92530; 92610; 92690; 92720; 93140; 94060; 95059; 95150